=== PATIENT | male | born 1955 | race African-American/Black ===

== ENCOUNTER 2019-10-13 21:47 | Inpatient (IN) | payer MEDICARE, OTHER ==
[~2019-10-13] VITALS: Ht 167.6 cm; Wt 59.9 kg
[2019-10-13] MEDS ORDERED: LABETALOL 5MG/ML SYR 20 MG/4 ML SYRINGE IV ONE ×2 (22:00)
[2019-10-13] MEDS ORDERED: CLONIDINE 0.3MG TABLET PO ONE (22:15)
[2019-10-13] MEDS ORDERED: AMLODIPINE 10MG TABLET PO ONE (22:15)
[2019-10-13] MEDS ORDERED: LORAZEPAM 1MG TABLET PO ONE (22:30)
[2019-10-13] MEDS ORDERED: HYDRALAZINE HCL 25MG TABLET PO ONE (23:00)
[2019-10-13] MEDS ORDERED: HYDRALAZINE HCL 50MG TABLET PO ONE (23:45)
[2019-10-14] MEDS ORDERED: ACETAMINOPHEN 325MG TABLET PO PRN
[2019-10-14] MEDS ORDERED: MORPHINE SULFATE 2 MG/ML CPJ (NOT FOR IM USE) IV PRN
[2019-10-14] MEDS ORDERED: HYDROCODONE/ACETAMINOPHEN 5/325MG TABLET PO PRN
[2019-10-14] MEDS ORDERED: METOPROLOL TARTRATE 25MG TABLET PO SCH
[2019-10-14] MEDS ORDERED: ONDANSETRON HCL 4MG/2ML INJ IV PRN
[2019-10-14] MEDS ORDERED: DEXTROSE 50% WATER 50ML SYRINGE IV SCH (00:15)
[2019-10-14 00:16] LABS: HEMATOCRIT. 45.3 % (42.0-52.0); HEMOGLOBIN. 15.3 g/dL (14.0-18.0); MEAN CORPUSCULAR HEMOGLOBIN 30.9 pg (28.0-32.0); MEAN CORPUSCULAR VOLUME 91.2 fL (80.0-94.0); MEAN PLATELET VOLUME 8.7 fl (7.4-10.4); PLATELET 153 x1000/uL (130-400); RED BLOOD CELL COUNT 4.96 mill/uL (4.7-6.1); RED CELL DISTRIBUTION WIDTH 15.1 % (11.6-14.6)
[2019-10-14 00:22] LABS: PROTHROMBIN TIME 10.2 sec (9.6-11.0)
[2019-10-14 00:38] LABS: CHLORIDE 103 mEq/L (98-107)
[2019-10-14 00:42] LABS: ETHANOL BLOOD < 10 mg/dL
[2019-10-14 00:45] LABS: LDL CHOLESTEROL 81 mg/dL (5-100)
[2019-10-14 00:47] LABS: CREATINE KINASE 132 IU/L (39-308)
[2019-10-14 01:59] LABS: CLARITY URINE CLEAR (CLEAR); COLOR URINE YELLOW (YELLOW); KETONES URINE NEGATIVE (NEGATIVE); LEUKOCYTE ESTERASE URINE NEGATIVE (NEGATIVE); NITRITE URINE NEGATIVE (NEGATIVE); OCCULT BLOOD URINE NEGATIVE (NEGATIVE); PROTEIN URINE NEGATIVE (NEGATIVE); SPECIFIC GRAVITY URINE 1.009 (1.005-1.030); UROBILINOGEN URINE 0.2 E.U./dL (0.2-1.0)
[2019-10-14 02:13] LABS: *AMPHETAMINES SCREEN URINE NEGATIVE (NEGATIVE); *BARBITURATES SCREEN URINE NEGATIVE (NEGATIVE); *BENZODIAZEPINES SCREEN URINE NEGATIVE (NEGATIVE); *COCAINE SCREEN URINE PRESUMTIVE POSITIVE (NEGATIVE); METHADONE URINE SCREEN PRESUMTIVE POSITIVE (NEGATIVE); OPIATES URINE SCREEN NEGATIVE (NEGATIVE)
[2019-10-14 02:14] LABS: CANNABINOID URINE SCREEN NEGATIVE (NEGATIVE); PHENCYCLIDINE URINE SCREEN NEGATIVE (NEGATIVE)
[2019-10-14 07:04] LABS: PLATELET ESTIMATE NORMAL
[2019-10-14] MEDS: ENOXAPARIN 40MG/0.4ML SYR SUBCUT SCH (11:06)
[2019-10-14] MEDS: ASPIRIN 81MG EC TABLET PO SCH (11:07)
[2019-10-14 18:34] VITALS: BP 132/68
[2019-10-14 18:36] VITALS: BP 132/68
[2019-10-14 20:00] VITALS: BP 119/87
[2019-10-14 20:39] LABS: CHLORIDE 105 mEq/L (98-107)
[2019-10-14] MEDS: AMLODIPINE 5MG TABLET PO SCH (21:18)
[2019-10-14] MEDS: ATORVASTATIN CALCIUM 40MG TABLET PO SCH (21:18)
[2019-10-15] VITALS: BP_SYST 121; BP_SYST 145; BP_DIAS 100; BP_DIAS 87
[2019-10-15 04:00] VITALS: BP 141/92
[2019-10-15 07:29] LABS: BASOPHILS % 0.7 % (0.0-2.0); EOSINOPHILS % 1.6 % (0.0-5.0); HEMOGLOBIN. 13.9 g/dL (14.0-18.0); MEAN CORPUSCULAR HEMOGLOBIN 29.7 pg (28.0-32.0); MEAN PLATELET VOLUME 10.1 fl (7.4-10.4); NEUTROPHILS % 53.7 % (40.0-76.0); PLATELET 160 x1000/uL (130-400); RED BLOOD CELL COUNT 4.67 mill/uL (4.7-6.1); RED CELL DISTRIBUTION WIDTH 14.7 % (11.6-14.6)
[2019-10-15 08:00] VITALS: BP 130/82
[2019-10-15] MEDS: ASPIRIN 81MG EC TABLET PO SCH (08:46)
[2019-10-15] MEDS: ENOXAPARIN 40MG/0.4ML SYR SUBCUT SCH (08:46)
[2019-10-15] MEDS: AMLODIPINE 5MG TABLET PO SCH ×2 (08:47→20:03)
[2019-10-15] MEDS ORDERED: INFLUENZA VIRUS VACCINE(AFLURIA) 0.5ML SYR IM ONE (09:00)
[2019-10-15] MEDS ORDERED: PNEUMOCOCCAL 23-VAL P-SAC VAC 0.5 ML IM ONE (10:00)
[2019-10-15 12:00] VITALS: BP 145/88
[2019-10-15 16:00] VITALS: BP 130/73
[2019-10-15 19:54] VITALS: BP 160/116
[2019-10-15] MEDS: ATORVASTATIN CALCIUM 40MG TABLET PO SCH (20:03)
[2019-10-16] VITALS: BP 145/100
[2019-10-16] MEDS: LORAZEPAM 2MG/ML CPJ IV PRN ×2 (01:34→17:12)
[2019-10-16 04:00] VITALS: BP 148/98
[2019-10-16 08:00] VITALS: BP 146/93
[2019-10-16] MEDS: AMLODIPINE 5MG TABLET PO SCH (08:58)
[2019-10-16] MEDS: ENOXAPARIN 40MG/0.4ML SYR SUBCUT SCH (08:58)
[2019-10-16] MEDS ORDERED: CLOPIDOGREL 75MG TABLET PO SCH (09:00)
[2019-10-16 09:51] LABS: T4 FREE 0.99 ng/dL (0.76-1.46)
[2019-10-16 09:52] LABS: FOLIC ACID (FOLATE) SERUM 17.2 ng/mL (>5.38)
[2019-10-16 12:00] VITALS: BP 147/94
[2019-10-16 16:00] VITALS: BP 150/93
[2019-10-16 17:43] VITALS: BP 150/89
== END 2019-10-16 19:50 | disposition short-term general hospital (02) | DRG 45 ==
LOC: ER 21:47 → 7WST 23:22 → EDBEDREQ 23:26 → EDBEDREQSVC 23:26 → EDBEDREQTM 23:26 → ENRESERV 10-14 16:22
PROVIDERS: ADMIT Internal Medicine Nephrology; ATTEND Internal Medicine Nephrology
DX: I63.9 Cerebral infarction, unspecified (principal); E44.1 Mild protein-calorie malnutrition; E16.2 Hypoglycemia, unspecified; I16.1 Hypertensive emergency; F17.210 Nicotine dependence, cigarettes, uncomplicated; Z53.20 Procedure and treatment not carried out because of patient's decision for unspecified reasons; E78.00 Pure hypercholesterolemia, unspecified; E78.5 Hyperlipidemia, unspecified; R13.10 Dysphagia, unspecified; I10 Essential (primary) hypertension; R47.01 Aphasia; F14.10 Cocaine abuse, uncomplicated; R73.9 Hyperglycemia, unspecified; R47.1 Dysarthria and anarthria; R00.1 Bradycardia, unspecified; Z68.21 Body mass index [BMI] 21.0-21.9, adult; Z71.6 Tobacco abuse counseling; Z71.51 Drug abuse counseling and surveillance of drug abuser; Z91.19 Patient's noncompliance with other medical treatment and regimen
CPT/HCPCS: 36415; 70551; 71045; 80048; 80061; 80305; 80320; 81003; 82550; 82553; 82607; 82746; 82962; 83036; 83721; 84439; 84443; 84481; 84484; 90686; 90732; 92610; 93005; 93306; 93880; 97162; 99291; J1650; J2060; J2270; J3490; G0480